=== PATIENT | female | born 1975 | race Caucasian/White ===

== ENCOUNTER 2019-06-12 14:33 | Emergency (ER) | payer OTHER ==
--- NOTE | 2019-06-12 14:55 | EDM.PDOC ---
ED HPI GENERAL MEDICAL PROBLEM - General Chief Complaint: Lower Extremity Injury/Pain Stated Complaint: WORK INJURY Time Seen by Provider: 06/12/19 14:40 Source of Information: Reports: Patient History Limitations: Reports: No Limitations - History of Present Illness INITIAL COMMENTS - FREE TEXT/NARRATIVE: Patient presents with left lower leg pain after falling from a platform at work about 2-3 hours ago. She fell about 4 feet and landed on her left foot but the leg was kind of twisted on landing. It now hurts bad with walking and quite a bit even at rest. She denies pain in hip or other extremities, head or neck. No LOC. Left Lower Leg Pain Score (Numeric/FACES): 8 - Related Data Allergies Allergy/AdvReac Type Severity Reaction Status Date / Time No Known Drug Allergies Allergy Cannot Verified 06/12/19 14:45 Remember Home Meds: Home Meds Levothyroxine Sodium [Synthroid] 125 mcg PO DAILY 06/12/19 [History] Review of Systems - Review of Systems Review Of Systems: See Below Constitutional: Denies: Chills, Diaphoresis, Fever, Weakness Eyes: Denies: Blurred Vision, Vision Change Ears: Denies: Pain Nose: Denies: Pain, Bloody Discharge Mouth/Throat: Reports: No Symptoms Respiratory: Denies: Shortness of Breath, Cough Cardiovascular: Denies: Chest Pain, Syncope GI/Abdominal: Denies: Abdominal Pain, Vomiting Genitourinary: Denies: Dysuria Musculoskeletal: Reports: Leg Pain. Denies: Neck Pain, Shoulder Pain, Arm Pain , Back Pain, Hand Pain, Foot Pain, Joint Pain Skin: Denies: Cyanosis, Jaundice, Mottled, Pallor, Diaphoresis Neurological: Denies: Confusion, Dizziness, Headache, Seizure, Syncope, Trouble Speaking Psychiatric: Denies: Confusion, Anxiety, Agitation ED EXAM, GENERAL - Physical Exam Exam: See Below Exam Limited By: No Limitations General Appearance: Alert, WD/WN, No Apparent Distress Eye Exam: Bilateral Eye: EOMI, Normal Inspection, PERRL Ears: Normal External Exam, Hearing Grossly Normal Nose: Normal Inspection, No Blood Throat/Mouth: Normal Inspection, Normal Voice, No Airway Compromise Head: Atraumatic, Normocephalic Neck: Normal Inspection, Supple, Non-Tender, Full Range of Motion Respiratory/Chest: No Respiratory Distress, Lungs Clear, Normal Breath Sounds, No Accessory Muscle Use Cardiovascular: Regular Rate, Rhythm, No Murmur Peripheral Pulses: 2+: Dorsalis Pedis (L) GI/Abdominal: Normal Bowel Sounds, Soft, Non-Tender, No Organomegaly, No Distention Back Exam: Normal Inspection, Full Range of Motion. No: CVA Tenderness (L), CVA Tenderness (R), Paraspinal Tenderness, Vertebral Tenderness Extremities: Normal Inspection (except CC), Normal Range of Motion (except CC), Normal Capillary Refill, Other (No bony tenderness evident in left knee, leg or ankle. Skin intact without swelling, abrasions or ecchymosis. Tender to palpation of soft tissue in lateral knee and proximal calf. Distal CMS intact. Plantar and dorsiflexion intact.). No: Pallor, Redness Neurological: Alert, Oriented, Normal Cognition, No Motor/Sensory Deficits Psychiatric: Normal Affect, Normal Mood Skin Exam: Warm, Dry, Intact, Normal Color, No Rash Course - Vital Signs Last Recorded V/S: Last Vital Signs Temp 98.0 F 06/12/19 14:40 Pulse 73 06/12/19 14:40 Resp 14 06/12/19 14:40 BP 105/70 06/12/19 14:40 Pulse Ox 95 06/12/19 14:40 - Orders/Labs/Meds Orders: Active Orders 24 hr Category Date Time Status Tibia Fibula Lt [CR] Stat Exams 06/12/19 14:48 Ordered - Re-Assessments/Exams Free Text/Narrative Re-Assessment/Exam: 06/12/19 15:43 Xrays show no fracture or acute pathology. Discussed findings and treatment plan with patient. Advised to ice and elevate several times a day. Crutches with [employer] and she was fitted and instructed in crutch use. She just started working here two weeks ago and lives in [place] so doesn't have a PCP in the area. She will need to see someone for recheck and to determine return to work status. Patient discharged in stable condition. Departure - Departure Time of Disposition: 15:32 Disposition: Home, Self-Care 01 Condition: Good Clinical Impression: Muscle strain, lower leg Qualifiers: Encounter type: initial encounter Laterality: left Qualified Code(s): S86.912A - Strain of unspecified muscle(s) and tendon(s) at lower leg level, left leg, initial encounter - Discharge Information Instructions: Muscle Strain, [id number], Crutch Use, Adult, [id number] Additional Instructions: Use crutches for weight-bearing until not painful without them. You can use Ibuprofen 600 mg and/or Tylenol 500-1000 mg up to 3 times a day as needed. Follow up with a doctor in clinic for recheck in 4-7 days for recheck and to determine your ability to return to work. See doctor or return to ER sooner if leg gets significantly worse as discussed. Sepsis Event Note - Evaluation Sepsis Screening Result: No Definite Risk - Focused Exam Vital Signs: Vital Signs Temp Pulse Resp BP Pulse Ox 06/12/19 14:40 98.0 F 73 14 105/70 95 Date Exam was Performed: 06/12/19 Time Exam was Performed: 14:50 - My Orders Last 24 Hours: My Active Orders 06/12/19 14:48 Tibia Fibula Lt [CR] Stat - Assessment/Plan Last 24 Hours: My Active Orders 06/12/19 14:48 Tibia Fibula Lt [CR] Stat
--- NOTE | 2019-06-12 15:21 | CR ---
[id number] RAD/RAD Tibia Fibula Left EXAM: RAD Tibia Fibula Left CLINICAL DATA: TRAUMA COMPARISON: NO PREVIOUS SIMILAR EXAM IS AVAILABLE. FINDINGS: No fracture or dislocation is seen. There is no radiopaque foreign body in the soft tissues. There is no air in the soft tissues. There is no cortical thickening or periosteal reaction either. IMPRESSION: NEGATIVE PLAIN FILM EXAM. Arnoldo Luo MD 06/12/19 [id number] Thank you for allowing us to participate in the care of your patient.
== END 2019-06-12 15:55 | disposition home or self-care (01) ==
LOC: KA.ED 14:33
DX: S86.912A Strain of unspecified muscle(s) and tendon(s) at lower leg level, left leg, initial encounter (principal); Z79.899 Other long term (current) drug therapy; W17.89XA Other fall from one level to another, initial encounter; Y92.89 Other specified places as the place of occurrence of the external cause; Y99.0 Civilian activity done for income or pay
CPT/HCPCS: 73590-LT; 99283-25